=== PATIENT | female | born 1980 | race Hispanic/Latino ===

== ENCOUNTER 2017-11-05 21:53 | Emergency (ER) | payer BC ==
[2017-11-05] MEDS ORDERED: Ciprofloxacin 0.3% OPTH SOLN OD STA (22:24)
--- NOTE | 2017-11-05 22:28 | ED PDOC ---
Arrival/HPI - General Chief Complaint: Eye Problem Time Seen by Provider: 11/05/17 22:14 Historian: Patient - History of Present Illness Narrative History of Present Illness (Text): 11/05/17 22:24 37 year old female, with no past medical history, no known drug abuse, occasionally wears contacts, who presents to the Emergency department complaining of irritation, dryness, and discharge from her right eye for 5 hours prior to arrival. Patient states that she quickly removed her contacts but irritation and discharge persist. Patient denies any blurry vision, vision changes, surgery to the eye, or any other complaints. Symptom Onset: Gradual Symptom Course: Unchanged Activities at Onset: Light Context: Home Past Medical History - Provider Review Nursing Documentation Reviewed: Yes - Psychiatric Hx Substance Use: No Family/Social History - Physician Review Nursing Documentation Reviewed: Yes Family/Social History: Unknown Family HX Smoking Status: Current Some Days Smoker Hx Alcohol Use: No Hx Substance Use: No Allergies/Home Meds Allergies/Adverse Reactions: Allergies No Known Allergies Allergy (Verified 11/05/17 22:10) Review of Systems - Physician Review All systems were reviewed & negative as marked: Yes - Review of Systems Constitutional: absent: Fevers Eyes: Other (+right eye conjunctivitis, +eye discharge). absent: Vision Changes ENT: absent: Hearing Changes Respiratory: absent: SOB, Cough Cardiovascular: absent: Chest Pain Gastrointestinal: absent: Abdominal Pain, Nausea, Vomiting Musculoskeletal: absent: Arthralgias, Back Pain Skin: absent: Rash, Pruritis Neurological: absent: Headache, Dizziness Psychiatric: absent: Anxiety, Depression, Suicidal Ideation Physical Exam Vital Signs Temp Pulse Resp BP Pulse Ox 11/05/17 22:49 98.2 F 74 18 105/63 99 - Systems Exam Head: Present: Atraumatic, Normocephalic Pupils: Present: PERRL Extroacular Muscles: Present: EOMI Conjunctiva: Present: Other (Eyes: rt. eye w/o correction 20/25 vs. left eye w/ o correction 20/25, bilateral vision 20/25 without correction, rt. eye has no fluorsein strip uptake and no hyphema or subconjunctival hemorrage, no periorbital swelling, negative dave signs and no corneal laceration noted on the rt. cornea, no periorbital swelling, no visible foreign bodies on the rt. eye on the upper and lower eyelids, no periorbital cellulitis, no painful movement of the eyes. ) Mouth: Present: Moist Mucous Membranes Neck: Present: Normal Range of Motion Respiratory/Chest: Present: Clear to Auscultation, Good Air Exchange. No: Respiratory Distress, Accessory Muscle Use Cardiovascular: Present: Regular Rate and Rhythm, Normal S1, S2. No: Murmurs Abdomen: No: Tenderness, Distention, Peritoneal Signs Back: Present: Normal Inspection Upper Extremity: Present: Normal Inspection. No: Cyanosis, Edema Lower Extremity: Present: Normal Inspection. No: Edema Neurological: Present: GCS=15, CN II-XII Intact, Speech Normal Skin: Present: Warm, Dry, Normal Color. No: Rashes Psychiatric: Present: Alert, Oriented x 3, Normal Insight, Normal Concentration Medical Decision Making ED Course and Treatment: 11/05/17 22:24 Impression: 37 year old female complaining of right eye irritation, dryness, and discharge for 5 hours [employer]. Plan: --Urine hcg is negative -- Ciloxan -- outpatient opthalmologist follow up. - Medication Orders Current Medication Orders: Discontinued Medications Ciprofloxacin (Ciloxan 0.3% Ophth Soln) 2 drop OD STAT STA Stop: 11/05/17 22:25 Last Admin: 11/05/17 22:38 Dose: 2 drop Comments: R eye - PA / POSTPARTUM NURSE / Resident Statement MD/DO has reviewed & agrees with the documentation as recorded. - Scribe Statement The provider has reviewed the documentation as recorded by the Cipriano Alexis Provider Scribe Attestation: All medical record entries made by the Cipriano were at my direction and personally dictated by me. I have reviewed the chart and agree that the record accurately reflects my personal performance of the history, physical exam, medical decision making, and the department course for this patient. I have also personally directed, reviewed, and agree with the discharge instructions and disposition. Disposition/Present on Arrival - Present on Arrival Any Indicators Present on Arrival: No History of DVT/PE: No History of Uncontrolled Diabetes: No Urinary Catheter: No History of Decub. Ulcer: No History Surgical Site Infection Following: None - Disposition Have Diagnosis and Disposition been Completed?: Yes Diagnosis: Bacterial conjunctivitis of right eye Disposition: HOME/ ROUTINE Disposition Time: 23:04 Condition: GOOD Discharge Instructions (ExitCare): Conjunctivitis ([place]) Additional Instructions: Discharge home with ciloxin, tylenol at home as needed, avoid wearing contacts for 1 week, follow up with your own pmd and opthalmologist within 2 days, return to the ER for any new or worsening signs or symptoms. Prescriptions: Ciprofloxacin 0.3% [Ciloxan 0.3% Ophth SOLN] 2 drop OD Q4 #1 bottle Referrals: Jose Simpson [Staff Provider] - Follow up with primary Forms: WORK NOTE
[2017-11-05 23:00] VITALS: BP 105/63; PULSE 74; RESP 18; TEMP 98.2; O2SAT 99
[2017-11-06] MEDS ORDERED: Racepinephrine 2.25% Inhal Soln 0.5 ML UD ONE (04:25)
== END 2017-11-05 22:55 | disposition home or self-care (01) ==
LOC: ED 21:53
DX: H10.9 Unspecified conjunctivitis (principal)